=== PATIENT | male | born 1945 | race Caucasian/White ===

== ENCOUNTER 2024-11-15 10:07 | Outpatient (CLI) | payer BC, SELFPAY | END 2024-11-15 10:08 | disposition home or self-care (01) | PROVIDERS: Visit Provider Nurse Practitioner | DX: C61 Malignant neoplasm of prostate (principal) | CPT/HCPCS: 72195 ==

== ENCOUNTER 2024-11-30 07:52 | Outpatient (CLI) | payer BC, SELFPAY ==
[2024-11-30] MEDS: REGADENOSON 0.4 MG/5 ML SYRINGE IVP (09:06)
[2024-11-30 09:24] VITALS: BP 124/78; PULSE 88; RESP 20; O2SAT 100
--- NOTE | 2024-11-30 09:36 | P.STN_ITS ---
Stress Test Note Date Date Seen: 11/30/24 Date of test: 11/30/24 Providers Primary care provider: Jamison Stress test physician: Myah Souza Stress Test Note Stress test ordered: Lexiscan Indication for test: CORREIA Stress test medicine: Lexiscan Results discussion: Resting EKG: Sinus rhythm, 63 beats per minute. Question right bundle-branch developing. Resting blood pressure: 122/64. Stress test: Patient is consented on ordered stress test of Lexiscan and agrees to proceed. He followed a walking Lexiscan protocol. He had some nausea and sense of lightheadedness after the injection of the regadenoson which did katerina by the end of the test. He had no chest pain, no significant respiratory symptoms, no arrhythmia or diagnostic ischemic changes seen on EKG monitoring. Patient's blood pressure maintained during the stress test. Nuclear medicine images pending to couple this for a full formal diagnostic. Patient was discharged from this portion of the stress test in stable condition. Impression: Subjectively negative, objectively negative EKG portion of this Lexiscan. Follow up suggested: Await nuclear medicine images, patient looks back to hear from his primary pro vider whom ordered the test once the full report is back with nuclear medicine read.
== END 2024-11-30 07:53 | disposition home or self-care (01) ==
PROVIDERS: Visit Provider Internal Medicine Cardiovascular Disease
DX: R06.09 Other forms of dyspnea (principal)
CPT/HCPCS: 78452; 93016; 93017; A9500; J2785